=== PATIENT | female | born 1960 | race Caucasian/White ===

== ENCOUNTER 2023-12-23 17:52 | Emergency (ER) | payer MEDICARE ==
[2023-12-23] MEDS ORDERED: ARZOL Silver Nitrate Applicator TP ONE (18:01)
[2023-12-23] MEDS ORDERED: XYLOCAINE 1% HCL 20 ML MDV ONE (18:02)
--- NOTE | 2023-12-23 18:09 | ERPHSYRPT ---
- History of Present Illness Time Seen by Provider: 12/23/23 18:03 Source: patient, family Exam Limitations: no limitations Physician History: pt has avulsion lac right thenar from [employer]. No other injuries reported. Tendon function intact with flex/ext prox and distal phalanx thumb and nontender. N/V intact distally. Discussed risk/benefit of dressing and cautery with silver nitrate with family and pt and sterile dressing with bactroban and they agree and update tdap alos agree. Timing/Duration: today Quality: painful Severity: moderate Location: hands Possible Causes: other (laceration) Associated Symptoms: denies symptoms Allergies/Adverse Reactions: codeine [Codeine] Allergy (Mild, Verified 12/27/11 18:58) Home Medications: Anastrozole [Arimidex] 1 mg PO DAILY 12/27/11 [History] PANTOPRAZOLE 40 mg Tablet [Protonix 40MG Tablet] 40 mg PO DAILY 12/27/11 [History] Paroxetine HCl 20 mg [Paxil 20 MG] 20 mg PO DAILY 12/27/11 [History] Potassium Chloride Tab* [Klor Con 10MEQ] 10 meq PO DAILY 12/27/11 [History] Telmisartan/Hydrochlorothiazid [Micardis Hct 40-12.5 mg Tablet] 1 each PO DAILY 12/27/11 [History] Triamterene/Hydrochlorothiazid [Triamterene-Hctz 37.5-25 mg Cp] 1 each PO DAILY 12/27/11 [History] Hx Tetanus, Diphtheria Vaccination/Date Given: No (UNSURE) - Review of Systems Constitutional: No Fever, No Chills Eyes: No Symptoms Ears, Nose, & Throat: No Symptoms Respiratory: No Cough, No Dyspnea Cardiac: No Chest Pain, No Edema, No Syncope Abdominal/Gastrointestinal: No Abdominal Pain, No Nausea, No Vomiting, No Diarrhea Genitourinary Symptoms: No Dysuria Musculoskeletal: No Back Pain, No Neck Pain Skin: Other (lac right thenar), No Rash Neurological: No Dizziness, No Focal Weakness, No Sensory Changes Psychological: No Symptoms Endocrine: No Symptoms All Other Systems: Reviewed and Negative - Past Medical History Pertinent Past Medical History: No Neurological History: No Pertinent History ENT History: No Pertinent History Cardiac History: Hypertension Respiratory History: No Pertinent History Endocrine Medical History: No Pertinent History Musculoskeletal History: No Pertinent History GI Medical History: Diverticulitis, GERD History: No Pertinent History Psycho-Social History: Anxiety, Depression Female Reproductive Disorders: No Pertinent History - Past Surgical History Past Surgical History: Yes Neuro Surgical History: No Pertinent History Cardiac: No Pertinent History Respiratory: No Pertinent History Gastrointestinal: No Pertinent History Genitourinary: No Pertinent History Musculoskeletal: No Pertinent History Female Surgical History: Lumpectomy - Social History Smoking Status: Never smoker Exposure to second hand smoke: No Drug Use: none Patient Lives Alone: No - Physical Exam General Appearance: no apparent distress, alert Eye Exam: PERRL/EOMI, eyes nml inspection Ears, Nose, Throat Exam: normal ENT inspection, pharynx normal, moist mucous membranes Neck Exam: normal inspection, non-tender, supple, full range of motion Respiratory Exam: normal breath sounds, lungs clear, No respiratory distress Cardiovascular Exam: regular rate/rhythm, normal heart sounds Gastrointestinal/Abdomen Exam: soft, mass, No tenderness Pelvic Exam: deferred Rectal Exam: deferred Back Exam: normal inspection, normal range of motion, No CVA tenderness, No vertebral tenderness Extremity Exam: normal inspection, normal range of motion Neurologic Exam: alert, oriented x 3, cooperative, normal mood/affect, sensation nml, No motor deficits Skin Exam: normal color, warm, dry SpO2 Interpretation: normal SpO2: 96 O2 Delivery: Room Air - Course Nursing assessment & vital signs reviewed: Yes Ordered Tests: Medication Summary Discontinued Medications Generic Name Dose Route Start Last Admin Trade Name Freq PRN Reason Stop Dose Admin Lidocaine HCl Confirm 12/23/23 18:02 Lidocaine Hcl 1% 20 Ml Mdv 20 Ml Ml Administered 12/23/23 18:03 Dose 5 ml .ROUTE .STK-MED ONE Silver Nitrate Confirm 12/23/23 18:01 Silver Nitrate 1 Pkt Each Administered 12/23/23 18:02 Dose 1 pkt TP .STK-MED ONE - Progress Progress: improved, re-examined Counseled pt/family regarding: diagnosis, need for follow-up Medical Desision Making - Independent Historian Additional History obtained from: Spouse - Discussion of managment Reviewed:: Need for additional workup Agreed on:: need for follow-up - Diagnostic Testing Diagnostic test were ordered, analyzed, and reviewed by me: No - Risk of complications The pt has a mod risk of morbidity or mortality based on: Need for prescription drug management - Departure Departure Disposition: Home Clinical Impression: laceration right thenar Condition: Good Critical Care Time: No Referrals: HORTENCIA DARBY MD [Primary Care Provider] - Follow up/PCP as directed Instructions: Wound Care (DC) Additional Instructions: apply antibiotic ointment daily until healed. followup with your Dr. to recheck next week and return meantime if any concerns, pain, swelling, redness or drainage or numbness. Prescriptions: Mupirocin [Bactroban OINTMENT] 22 gm TP BID #1 cartridge Mupirocin [Bactroban OINTMENT] 22 gm TP BID #1 cartridge
[2023-12-23 18:12] VITALS: TEMP 97.1
[2023-12-23] MEDS: XYLOCAINE 1% HCL 20 ML MDV IJ ONE (18:18)
[2023-12-23] MEDS ORDERED: NORCO 5/325 MG ONE (18:20)
[2023-12-23] MEDS ORDERED: Adacel Vial IM ONE (18:20)
[2023-12-23] MEDS: Adacel Vial IM ONE (18:21)
[2023-12-23] MEDS: NORCO 5/325 MG PO ONE (18:22)
[2023-12-23 18:31] VITALS: BP 143/81; PULSE 56; RESP 18; O2SAT 95
== END 2023-12-23 18:31 | disposition home or self-care (01) ==
LOC: ED 17:52
DX: S61.411A Laceration without foreign body of right hand, initial encounter (principal); W29.0XXA Contact with powered kitchen appliance, initial encounter; I10 Essential (primary) hypertension; Z79.899 Other long term (current) drug therapy; Z23 Encounter for immunization
CPT/HCPCS: 90471; 90715; 96372; 99283; A9270-GY

== ENCOUNTER 2024-02-07 13:59 | Day surgery (SDC) | payer MEDICARE ==
[2024-02-07] MEDS ORDERED: Sodium Chloride 0.9(Preservative Free) 10 ML IJ ONE (14:00)
[2024-02-07] MEDS ORDERED: LIDOCAINE HCL 1% 50 MG/5 ML VL PF IJ ONE (14:00)
[2024-02-07] MEDS ORDERED: Decadron 4 MG INJ IV ONE (14:00)
[2024-02-07] MEDS ORDERED: DIPRIVAN 200 MG/20 ML IV ONE (15:25)
--- NOTE | 2024-02-07 16:30 | XRAY ---
Indication: Left L4-S1 transforaminal SATHYA. Intraoperative fluoroscopy provided for 29 seconds. 4 digital spot image submitted for interpretation demonstrates posterior needle tips projecting over the expected left L4 and L5 nerve roots. Small amount of contrast injected for needle tip placement. Correlate with intraoperative findings/report.
--- NOTE | 2024-02-07 16:32 | XRAY ---
Indication: Left piriformis injection. Intraoperative fluoroscopy provided for 7 seconds. Single digital spot image submitted for interpretation demonstrates posterior needle tip projecting over the left piriformis. Small amount of contrast injected for needle tip placement. Correlate with intraoperative findings/report.
--- NOTE | 2024-02-07 16:52 | XRAY ---
7 seconds of fluoroscopy was used in surgery for a left piriformis injection.
--- NOTE | 2024-02-07 16:53 | XRAY ---
29 seconds of fluoroscopy was used in surgery for a left L4-S1 transforaminal SATHYA.
[2024-02-07] MEDS ORDERED: Lactated Ringers 1,000 ML IV ONE (17:01)
== END 2024-02-07 16:04 | disposition home or self-care (01) ==
LOC: SDC-PAIN 13:59
PROVIDERS: ATTEND Psychiatry & Neurology Pain Medicine
DX: M54.16 Radiculopathy, lumbar region (principal); M79.18 Myalgia, other site
CPT/HCPCS: 20552; 64483; 64484; 72100; 72170; 77002; 77003; J1100; J2001; J2704; Q9966

== ENCOUNTER 2024-06-19 15:24 | Day surgery (SDC) | payer MEDICARE ==
[2024-06-19] MEDS ORDERED: BUPIVACAINE 0.5% VIAL IJ ONE (15:25)
[2024-06-19] MEDS ORDERED: LIDOCAINE HCL 1% AMPUL 5 ML IJ ONE (15:25)
[2024-06-19] MEDS ORDERED: Depo-Medrol 40 MG/ML IM ONE (15:25)
--- NOTE | 2024-06-19 19:06 | XRAY ---
Indication: Right knee injection. Intraoperative fluoroscopy provided for 6 seconds. Single digital spot image submitted for interpretation demonstrates needle tip projecting over right femur intercondylar notch. Small amount of contrast injected for all needle tip placement. Correlate with intraoperative findings/report.
--- NOTE | 2024-06-20 09:00 | XRAY ---
6 seconds of fluoroscopy used in surgery for a right intra-articular knee injection.
== END 2024-06-19 17:24 | disposition home or self-care (01) ==
LOC: SDC-PAIN 15:24
PROVIDERS: ATTEND Psychiatry & Neurology Pain Medicine
DX: M17.11 Unilateral primary osteoarthritis, right knee (principal); E11.9 Type 2 diabetes mellitus without complications
CPT/HCPCS: 20610; 73560; 77002; 82947; Q9966

== ENCOUNTER 2025-03-19 09:48 | Day surgery (SDC) | payer MEDICARE ==
[2025-03-19] MEDS ORDERED: Sodium Chloride 0.9(Preservative Free) 10 ML IJ ONE (09:49)
[2025-03-19] MEDS ORDERED: LIDOCAINE HCL 1% 50 MG/5 ML VL IJ ONE (09:49)
[2025-03-19] MEDS ORDERED: propofoL IV ONE (10:55)
[2025-03-19] MEDS ORDERED: Lactated Ringers 1,000 ML IV ONE (11:42)
--- NOTE | 2025-03-19 12:19 | XRAY ---
Indication: Left L4-S1 transforaminal SATHYA. Intraoperative fluoroscopy provided for 19 seconds. 3 digital spot image submitted for interpretation demonstrates posterior needle tips projecting over expected left L4 and L5 nerve roots. Small amount of contrast injected for needle tip placement. Correlate with intraoperative findings/report.
--- NOTE | 2025-03-19 12:19 | XRAY ---
Indication: Left piriformis injection. Intraoperative fluoroscopy provided for 6 seconds. Single digital spot image submitted for interpretation demonstrates posterior needle tip projecting over left piriformis. Small amount of contrast injected for needle tip placement. Correlate with intraoperative findings/report.
--- NOTE | 2025-03-19 12:21 | XRAY ---
6 seconds of fluoroscopy was used in surgery for a left piriformis injection.
--- NOTE | 2025-03-19 12:21 | XRAY ---
19 seconds of fluoroscopy was used in surgery for a left L4-S1 transforaminal SATHYA.
== END 2025-03-19 11:30 | disposition home or self-care (01) ==
LOC: SDC-PAIN 09:48
PROVIDERS: ATTEND Psychiatry & Neurology Pain Medicine
DX: M54.16 Radiculopathy, lumbar region (principal); E11.9 Type 2 diabetes mellitus without complications; M79.18 Myalgia, other site